=== PATIENT | female | born 1940 | race Caucasian/White ===

== ENCOUNTER 2022-10-14 19:03 | Inpatient (IN) | payer OTHER, MEDICAID ==
[~2022-10-14] VITALS: Ht 167.6 cm; Wt 91.0 kg
[2022-10-14 22:36] VITALS: BP 121/61
[2022-10-14] MEDS ORDERED: MET50T PO (22:50)
[2022-10-14] MEDS ORDERED: ASPI1TAB20 PO (22:50)
[2022-10-14] MEDS ORDERED: DULO1CAP6 PO (22:50)
[2022-10-14] MEDS ORDERED: ROSU1TAB14 PO (22:50)
[2022-10-14] MEDS ORDERED: GABA400C11 PO (22:50)
[2022-10-14] MEDS ORDERED: APIX5TAB PO (22:50)
[2022-10-14] MEDS ORDERED: LEV88T PO (22:50)
[2022-10-14] MEDS ORDERED: ALBU108A5 PO (22:51)
[2022-10-14] MEDS ORDERED: ACETAMINOPHEN 325 MG TAB PO PRN (23:00)
[2022-10-14] MEDS ORDERED: MORPHINE SULFATE INJ 2 MG/ml SYRG IV PRN ×2 (23:00)
[2022-10-14] MEDS ORDERED: NITROGLYCERIN 0.4 MG SL TAB SL PRN (23:00)
[2022-10-14] MEDS ORDERED: ENOXAPARIN SOD 100 MG/1 ML SYRINGE SC ONE (23:15)
[2022-10-15 01:16] LABS: Basophils # (auto) 0 10 ^3/uL (0-0.2); Basophils % (auto) 0.5 % (0.0-2.0); Eosinophils # (auto) 0 10 ^3/uL (0-0.8); Eosinophils % (auto) 0.2 % (0.0-7.0); Hematocrit 32.6 % (36.0-46.0); Hemoglobin 10.9 g/dL (12.2-16.2); Lymphocytes # (auto) 1.1 10 ^3/uL (0.4-5.4); Lymphocytes % (auto) 26.8 % (10.0-50.0); Mean Corpuscular Hemoglobin 27.3 pg (28.0-32.0); Mean Corpuscular Hgb Conc. 33.4 g/dL (32.0-36.0); Mean Corpuscular Volume 81.6 fL (80.0-100.0); Monocytes # (auto) 0.3 10 ^3/uL (0-1.3); Neutrophils # (auto) 2.7 10 ^3/uL (1.6-8.6); Neutrophils % (auto) 64.5 % (37.0-80.0); Nucleated Red Blood Cells % 0.2 %; Red Blood Cells 3.99 10^6/uL (4.0-5.20); Red Cell Distribution Width 17.9 % (11.8-14.3); White Blood Cell 4.1 10^3/uL (4.4-10.8)
[2022-10-15 01:26] LABS: INR 1.1 (0.9-1.15); Partial Thromboplastin Time 34.2 sec (24.6-33.4)
[2022-10-15 01:30] LABS: Albumin 2.5 g/dL (3.4-5.0); BUN/Creatinine Ratio 20.3; Potassium 3.5 mmol/L (3.5-5.1)
[2022-10-15 01:33] LABS: Bilirubin, Total 0.4 mg/dL (0.2-1.0)
[2022-10-15 01:44] LABS: Urine Bacteria FEW /hpf (None Seen); Urine Blood 1+ /uL (Negative); Urine Mucus FEW (None Seen); Urine Specific Gravity 1.035 (1.001-1.035); Urine WBC 5 /hpf (0 - 5)
[2022-10-15 01:53] LABS: Cholesterol 109 mg/dL (< 200)
[2022-10-15 01:56] LABS: HDL Cholesterol 66 mg/dL (40-59); LDL Cholesterol 34 mg/dL (< 100); Triglycerides 88 mg/dL (< 150)
[2022-10-15 02:01] LABS: Alcohol, Urine < 3.0 mg/dL (0-10); Amphetamine Screen, Urine NEGATIVE (NEGATIVE); Barbiturate Scree,Urine NEGATIVE (NEGATIVE); Benzodiazephine Screen, Urine NEGATIVE (NEGATIVE); Cannabinoid Screen, Urine NEGATIVE (NEGATIVE); Cocaine Screen, Urine NEGATIVE (NEGATIVE); Opiate Scree,Urine NEGATIVE (NEGATIVE); Phencyclidine Screen, Urine NEGATIVE (NEGATIVE)
[2022-10-15 05:00] VITALS: BP 113/50
[2022-10-15] MEDS: LEVOTHYROXINE SODIUM 88 MCG TAB PO SCH (06:21)
[2022-10-15 06:32] LABS: Basophils # (auto) 0 10 ^3/uL (0-0.2); Basophils % (auto) 0.2 % (0.0-2.0); Eosinophils # (auto) 0 10 ^3/uL (0-0.8); Eosinophils % (auto) 0.1 % (0.0-7.0); Hematocrit 32.8 % (36.0-46.0); Hemoglobin 10.9 g/dL (12.2-16.2); Lymphocytes # (auto) 1.3 10 ^3/uL (0.4-5.4); Lymphocytes % (auto) 28.7 % (10.0-50.0); Mean Corpuscular Hemoglobin 26.9 pg (28.0-32.0); Mean Corpuscular Hgb Conc. 33.2 g/dL (32.0-36.0); Mean Corpuscular Volume 81.1 fL (80.0-100.0); Monocytes # (auto) 0.4 10 ^3/uL (0-1.3); Monocytes % (auto) 8.9 % (0.0-12.0); Neutrophils # (auto) 2.9 10 ^3/uL (1.6-8.6); Neutrophils % (auto) 62.1 % (37.0-80.0); Nucleated Red Blood Cells % 0.1 %; Red Blood Cells 4.05 10^6/uL (4.0-5.20); Red Cell Distribution Width 18.2 % (11.8-14.3); White Blood Cell 4.6 10^3/uL (4.4-10.8)
[2022-10-15 06:58] LABS: Potassium 3.2 mmol/L (3.5-5.1)
[2022-10-15 07:06] LABS: Albumin 2.6 g/dL (3.4-5.0); BUN/Creatinine Ratio 23.9; Bilirubin, Total 0.4 mg/dL (0.2-1.0); Total Protein 5.6 g/dL (6.4-8.2)
[2022-10-15 07:37] VITALS: BP 115/59
[2022-10-15] MEDS: ASPirin-EC 81 mg tab PO SCH (09:51)
[2022-10-15] MEDS: DULoxetine HCL 30 MG CAP PO SCH ×2 (09:51→22:24)
[2022-10-15] MEDS: METOPROLOL TARTRATE 50 MG TAB PO SCH ×2 (09:52→22:42)
[2022-10-15] MEDS: ATORVASTATIN 20 MG TAB PO SCH (09:52)
[2022-10-15] MEDS: POTASSIUM CHL 20 Meq TABLET PO SCH (09:52)
[2022-10-15] MEDS ORDERED: ENOXAPARIN SOD 40 MG/0.4 ML SYRINGE SC SCH (10:00)
[2022-10-15] MEDS ORDERED: FUROSEMIDE 20 MG/2 ML VIAL IV SCH ×2 (10:00→11:30)
[2022-10-15 13:00] VITALS: BP 100/56
[2022-10-15] MEDS ORDERED: FUROSEMIDE 20 MG/2 ML VIAL IV ONE (13:00)
[2022-10-15 17:00] VITALS: BP 103/56
[2022-10-15] MEDS: PIPERACILLIN-TAZOB 3.375GM 100 ML IV SCH ×2 (18:00→18:41)
[2022-10-15] MEDS: APIXABAN 5 MG TAB PO SCH (18:47)
[2022-10-15 22:00] VITALS: BP 108/57
[2022-10-15] MEDS: GABAPENTIN 400 MG CAP PO SCH (22:24)
[2022-10-16] MEDS: PIPERACILLIN-TAZOB 3.375GM 100 ML IV SCH ×4 (00:05→17:58)
[2022-10-16 05:00] VITALS: BP 117/57
[2022-10-16] MEDS: LEVOTHYROXINE SODIUM 88 MCG TAB PO SCH (06:20)
[2022-10-16 07:00] LABS: Basophils # (auto) 0 10 ^3/uL (0-0.2); Basophils % (auto) 0.4 % (0.0-2.0); Eosinophils # (auto) 0 10 ^3/uL (0-0.8); Eosinophils % (auto) 0.6 % (0.0-7.0); Hematocrit 31.8 % (36.0-46.0); Hemoglobin 10.9 g/dL (12.2-16.2); Lymphocytes # (auto) 1.8 10 ^3/uL (0.4-5.4); Lymphocytes % (auto) 38.9 % (10.0-50.0); Mean Corpuscular Hemoglobin 27.9 pg (28.0-32.0); Mean Corpuscular Hgb Conc. 34.3 g/dL (32.0-36.0); Mean Corpuscular Volume 81.3 fL (80.0-100.0); Monocytes # (auto) 0.5 10 ^3/uL (0-1.3); Monocytes % (auto) 10.1 % (0.0-12.0); Neutrophils # (auto) 2.4 10 ^3/uL (1.6-8.6); Nucleated Red Blood Cells % 0.1 %; Red Blood Cells 3.91 10^6/uL (4.0-5.20); Red Cell Distribution Width 17.8 % (11.8-14.3); White Blood Cell 4.7 10^3/uL (4.4-10.8)
[2022-10-16 07:29] LABS: Potassium 3.1 mmol/L (3.5-5.1)
[2022-10-16 07:40] LABS: BUN/Creatinine Ratio 18.5; Calcium 8.7 mg/dL (8.5-10.1)
[2022-10-16] MEDS: HYDROcodone-ACET 5/325MG TAB PO PRN ×2 (07:55→14:53)
[2022-10-16] MEDS: APIXABAN 5 MG TAB PO SCH ×2 (08:42→18:40)
[2022-10-16 08:52] VITALS: BP 126/64
[2022-10-16] MEDS: ASPirin-EC 81 mg tab PO SCH (09:36)
[2022-10-16] MEDS: DULoxetine HCL 30 MG CAP PO SCH ×2 (09:36→21:38)
[2022-10-16] MEDS: POTASSIUM CHL 20 Meq TABLET PO SCH (09:36)
[2022-10-16] MEDS: FUROSEMIDE 40 MG/4 ML VIAL IV SCH (09:36)
[2022-10-16] MEDS: ATORVASTATIN 20 MG TAB PO SCH (09:37)
[2022-10-16] MEDS: METOPROLOL TARTRATE 50 MG TAB PO SCH ×2 (09:37→21:45)
[2022-10-16 13:05] VITALS: BP 103/56
[2022-10-16 17:19] VITALS: BP 113/74
[2022-10-16] MEDS: GABAPENTIN 400 MG CAP PO SCH (21:38)
[2022-10-16 22:00] VITALS: BP 108/60
[2022-10-17] MEDS: PIPERACILLIN-TAZOB 3.375GM 100 ML IV SCH ×4 (00:52→18:00)
[2022-10-17 05:00] VITALS: BP 111/58
[2022-10-17] MEDS: LEVOTHYROXINE SODIUM 88 MCG TAB PO SCH (06:42)
[2022-10-17 08:20] VITALS: BP 114/61
[2022-10-17] MEDS: APIXABAN 5 MG TAB PO SCH ×2 (09:00→19:00)
[2022-10-17] MEDS: ASPirin-EC 81 mg tab PO SCH (10:27)
[2022-10-17] MEDS: DULoxetine HCL 30 MG CAP PO SCH ×2 (10:27→21:19)
[2022-10-17] MEDS: FUROSEMIDE 40 MG/4 ML VIAL IV SCH (10:27)
[2022-10-17] MEDS: POTASSIUM CHL 20 Meq TABLET PO SCH (10:28)
[2022-10-17] MEDS: METOPROLOL TARTRATE 50 MG TAB PO SCH ×2 (10:28→21:48)
[2022-10-17] MEDS: ATORVASTATIN 20 MG TAB PO SCH (10:29)
[2022-10-17 12:15] VITALS: BP 121/65
[2022-10-17 17:00] VITALS: BP 120/63
[2022-10-17] MEDS: GABAPENTIN 400 MG CAP PO SCH (21:19)
[2022-10-17] MEDS: HYDROcodone-ACET 5/325MG TAB PO PRN (21:19)
[2022-10-17 22:00] VITALS: BP 124/49
[2022-10-18] MEDS: PIPERACILLIN-TAZOB 3.375GM 100 ML IV SCH ×4 (00:05→18:00)
[2022-10-18 05:00] VITALS: BP 105/54
[2022-10-18] MEDS: LEVOTHYROXINE SODIUM 88 MCG TAB PO SCH (06:11)
[2022-10-18 09:00] VITALS: BP 123/65
[2022-10-18] MEDS: POTASSIUM CHL 20 Meq TABLET PO SCH (09:11)
[2022-10-18] MEDS: FUROSEMIDE 40 MG/4 ML VIAL IV SCH (09:11)
[2022-10-18] MEDS: METOPROLOL TARTRATE 50 MG TAB PO SCH (09:11)
[2022-10-18] MEDS: APIXABAN 5 MG TAB PO SCH (09:11)
[2022-10-18] MEDS: ASPirin-EC 81 mg tab PO SCH (09:12)
[2022-10-18] MEDS: ATORVASTATIN 20 MG TAB PO SCH (09:12)
[2022-10-18] MEDS: DULoxetine HCL 30 MG CAP PO SCH (09:12)
[2022-10-18] MEDS: HYDROcodone-ACET 5/325MG TAB PO PRN (09:16)
[2022-10-18 13:00] VITALS: BP 113/60
[2022-10-18 17:00] VITALS: BP 115/60
== END 2022-10-18 18:44 | DRG 177 ==
LOC: UNDOADMIN 22:15 → TELE-WESTW 22:15 → WEST WING 10-18 18:24
PROVIDERS: ADMIT Internal Medicine; ATTEND Internal Medicine
DX: J15.6 Pneumonia due to other Gram-negative bacteria (principal); G93.41 Metabolic encephalopathy; I50.33 Acute on chronic diastolic (congestive) heart failure; J96.01 Acute respiratory failure with hypoxia; I13.0 Hypertensive heart and chronic kidney disease with heart failure and stage 1 through stage 4 chronic kidney disease, or unspecified chronic kidney disease; I48.20 Chronic atrial fibrillation, unspecified; D64.9 Anemia, unspecified; E78.5 Hyperlipidemia, unspecified; Z20.822 Contact with and (suspected) exposure to COVID-19; E87.6 Hypokalemia; I25.10 Atherosclerotic heart disease of native coronary artery without angina pectoris; I48.0 Paroxysmal atrial fibrillation; N18.9 Chronic kidney disease, unspecified; Z86.73 Personal history of transient ischemic attack (TIA), and cerebral infarction without residual deficits; Z98.61 Coronary angioplasty status; Z88.2 Allergy status to sulfonamides; Z88.1 Allergy status to other antibiotic agents
CPT/HCPCS: 36415; 71045; 80048; 80053; 80061; 80307; 81001; 83036; 83605; 83735; 83880; 84443; 84484; 85025; 85610; 85730; 87426; 93005; 93306; 93886; 97110; 97116; 97163; 97530; G0378; J2543